=== PATIENT | female | born 1960 | race Caucasian/White ===

== ENCOUNTER → 2016-10-08 | Outpatient (CLI) | payer OTHER ==
--- NOTE | 2016-10-09 11:09 | MM ---
Reason for exam: screening (asymptomatic). Last mammogram was performed 1 year ago. Physical Findings: A clinical breast exam by your physician is recommended on an annual basis and results should be correlated with mammographic findings. MG Screening Mammo w CAD Bilateral CC and MLO view(s) were taken. Prior study comparison: October 09, 2015, left breast MG 3d work up w/cad LT. October 04, 2015, bilateral MG screening mammo w CAD. There are scattered fibroglandular densities. No significant changes when compared with prior studies. ASSESSMENT: Negative, BI-RAD 1 RECOMMENDATION: Routine screening mammogram of both breasts in 1 year.
== END | disposition home or self-care (01) ==
LOC: RADMAMWWP 06:56
PROVIDERS: ATTEND Obstetrics & Gynecology
DX: Z12.31 Encounter for screening mammogram for malignant neoplasm of breast (principal)

== ENCOUNTER 2017-10-22 07:01 | Day surgery (SDC) | payer OTHER ==
[~2017-10-22 07:01] MED LIST: LACTATED RINGERS 1,000 ML IV SCH; LIDOCAINE 1% 20 ML VIAL (10MG/ML) FOR IV START INTRADERMA PRN
[2017-10-22] MEDS ORDERED: LACTATED RINGERS 1,000 ML IV ONE (07:22)
[2017-10-22 07:33] VITALS: TEMP 97.5
[2017-10-22] MEDS ORDERED: LIDOCAINE 1% INJ 10MG/ML (20 ML MDV) ONE (08:22)
[2017-10-22] MEDS ORDERED: PROPOFOL 10 MG/ML 20 ML VIAL IV ONE (08:22)
--- NOTE | 2017-10-22 08:45 | P.OP ---
Date of Procedure: 10/22/17 Preoperative Diagnosis: Screening colonoscopy Postoperative Diagnosis: Normal colonoscopy Procedure(s) Performed: Screening colonoscopy Anesthesia: MAC Surgeon: America Kathleen Condition: stable Disposition: PACU Indications for Procedure: 57 years old female presents for first screening colonoscopy. No family history of colon cancer. No change in bowel habits. Operative Findings: Normal colonoscopy Small internal hemorrhoids Description of Procedure: The patient was brought to the endoscopy suite and placed in lateral decubitus position. IV sedation was given as per anesthesia team. Patient was on continuous vitals and pulse oximetry monitoring throughout the procedure. A timeout was performed to verify correct patient and correct procedure. Perianal examination did not show any external hemorrhoids. Digital rectal examination was performed. No masses or gross blood. A well-lubricated Olympus colonoscope was passed per rectally and was gradually advanced beyond the sigmoid colon, splenic flexure, transverse colon, hepatic flexure and cecum. The ileocecal valve was visualized as well as the appendiceal orifice . The colonoscope was gradually withdrawn inspecting all the mucosal surfaces. Bowel prep was fair. No polyps, masses, AV malformations noted. No diverticulosis. The scope was gradually withdrawn and retroflexed in the rectum . Grade 1 internal hemorrhoids seen. Total withdrawal time was greater than 6 minutes . Patient tolerated the procedure well and was taken to post anesthesia care unit in stable condition. Recommend repeat colonoscopy in 10 years i.e Sep 2027 unless new symptoms arise
[2017-10-22 09:07] VITALS: RESP 16
[2017-10-22 09:08] VITALS: BP 164/90; PULSE 55
== END 2017-10-22 09:20 | disposition home or self-care (01) ==
LOC: ORWHC2ENDO 07:01
PROVIDERS: ATTEND Surgery
DX: Z12.11 Encounter for screening for malignant neoplasm of colon (principal); K64.0 First degree hemorrhoids; I10 Essential (primary) hypertension; E07.9 Disorder of thyroid, unspecified; F32.9 Major depressive disorder, single episode, unspecified; K21.9 Gastro-esophageal reflux disease without esophagitis; Z79.890 Hormone replacement therapy; Z79.899 Other long term (current) drug therapy; Z88.6 Allergy status to analgesic agent; Z98.51 Tubal ligation status
CPT/HCPCS: J2001; J2704; G0121; 45378

== ENCOUNTER → 2017-11-03 | Outpatient (CLI) | payer OTHER ==
--- NOTE | 2017-11-04 07:35 | MM ---
Reason for exam: screening (asymptomatic). Last mammogram was performed 1 year and 1 month ago. History: Patient is postmenopausal. Physical Findings: A clinical breast exam by your physician is recommended on an annual basis and results should be correlated with mammographic findings. MG Screening Mammo w CAD Bilateral CC and MLO view(s) were taken. Prior study comparison: October 08, 2016, bilateral MG screening mammo w CAD. October 09, 2015, left breast MG 3d work up w/cad LT. The breast tissue is almost entirely fat. There is no discrete abnormality. No significant changes when compared with prior studies. ASSESSMENT: Negative, BI-RAD 1 RECOMMENDATION: Routine screening mammogram of both breasts in 1 year.
== END | disposition home or self-care (01) ==
LOC: RADMAMWWP 07:04
PROVIDERS: ATTEND Obstetrics & Gynecology
DX: Z12.31 Encounter for screening mammogram for malignant neoplasm of breast (principal)
CPT/HCPCS: 77067

== ENCOUNTER → 2018-11-18 | Outpatient (CLI) | payer OTHER ==
--- NOTE | 2018-11-19 10:04 | MM ---
Reason for exam: screening (asymptomatic). Last mammogram was performed 1 year ago. History: Patient is postmenopausal. Physical Findings: A clinical breast exam by your physician is recommended on an annual basis and results should be correlated with mammographic findings. MG 3D Screening Mammo W/Cad Bilateral CC and MLO view(s) were taken. Prior study comparison: November 03, 2017, bilateral MG screening mammo w CAD. October 08, 2016, bilateral MG screening mammo w CAD. The breast tissue is almost entirely fat. No significant changes when compared with prior studies. ASSESSMENT: Benign, BI-RAD 2 RECOMMENDATION: Routine screening mammogram of both breasts in 1 year.
== END | disposition home or self-care (01) ==
LOC: RADMAMWWP 06:52
PROVIDERS: ATTEND Obstetrics & Gynecology
DX: Z12.31 Encounter for screening mammogram for malignant neoplasm of breast (principal)
CPT/HCPCS: 77063; 77067

== ENCOUNTER 2021-02-09 07:10 | Inpatient (IN) | payer OTHER ==
--- NOTE | 2021-02-09 07:38 | ED ---
ENT HPI - General Chief complaint: ENT Stated complaint: Swollen throat Time Seen by Provider: 02/09/21 07:24 Source: patient, RN notes reviewed Mode of arrival: ambulatory Limitations: no limitations - History of Present Illness Initial comments: 60-year-old female presents emergency Department chief complaint of pain, swelling underneath her chin. Patient states that she's had an infectionin the past in which a heavy drain. Patient states that she did have prior surgery in which a small bone was removed and metal was placed secondary to sleep apnea. Patient denies any fever recently but current temp is 99.9. Patient denies any difficulty swallowing but states it is sore to swallow. Patient had prior tonsillectomy, sinus surgery also. Patient denies headache dizziness no posterior neck pain no chest pain or shortness breath - Related Data Home Medications Medication Instructions Recorded Confirmed DULoxetine HCL [Cymbalta] 10 mg PO BID 10/17/17 10/22/17 Levothyroxine Sodium [Synthroid] 150 mcg PO QAM 10/17/17 10/22/17 Omeprazole 40 mg PO DAILY 10/17/17 10/22/17 atenoloL [Atenolol] 100 mg PO BID 10/17/17 10/22/17 lisinopriL [Zestril] 10 mg PO DAILY 10/17/17 10/22/17 Allergies Allergy/AdvReac Type Severity Reaction Status Date / Time meloxicam [From Mobic] Allergy Swelling Verified 02/09/21 07:15 Review of Systems ROS Statement: Those systems with pertinent positive or pertinent negative responses have been documented in the HPI. ROS Other: All systems not noted in ROS Statement are negative. Past Medical History Past Medical History: GERD/Reflux, Hypertension, Thyroid Disorder History of Any Multi-Drug Resistant Organisms: None Reported Past Surgical History: Tubal Ligation, Uterine Ablation Additional Past Surgical History / Comment(s): sx for sleep apnea, D&C, chin surgery Past Anesthesia/Blood Transfusion Reactions: No Reported Reaction Past Psychological History: Anxiety Smoking Status: Never smoker Past Alcohol Use History: Rare Past Drug Use History: None Reported - Past Family History Father Family Medical History: Cancer Additional Family Medical History / Comment(s): liver, lung General Exam Limitations: no limitations General appearance: alert, in no apparent distress Head exam: Present: atraumatic, normocephalic, normal inspection Eye exam: Present: normal appearance, PERRL, EOMI. Absent: scleral icterus, conjunctival injection, periorbital swelling ENT exam: Present: normal oropharynx, mucous membranes moist, TM's normal bilaterally, normal external ear exam. Absent: other (Swelling in the submental region, mild erythema, firm with palpation) Neck exam: Present: normal inspection, full ROM. Absent: tenderness, lymphadenopathy Respiratory exam: Present: normal lung sounds bilaterally. Absent: respiratory distress, wheezes, rales, rhonchi, stridor Cardiovascular Exam: Present: regular rate, normal rhythm, normal heart sounds. Absent: systolic murmur, diastolic murmur, rubs, gallop, clicks Neurological exam: Present: alert Skin exam: Present: warm, dry, intact, normal color. Absent: rash Course Vital Signs 02/09/21 07:16 Temperature 99.9 F H Pulse Rate 73 Respiratory 18 Rate Blood Pressure 160/84 O2 Sat by Pulse 96 Oximetry Medical Decision Making - Medical Decision Making 60-year-old presents for throat swelling, jaw pain. Patient is a 2 cm abscess case discussed with on-call ENT Dr. Anderson who recommended patient be admitted with consult to him with consult ID starting antibiotics. Patient will be kept nothing by mouth at this time until further evaluation. - Lab Data Result diagrams: 02/09/21 07:40 02/09/21 07:40 Lab Results 02/09/21 02/09/21 02/09/21 Range/Units 07:40 07:40 07:40 WBC 9.0 (3.8-10.6) k/uL RBC 4.40 (3.80-5.40) m/uL Hgb 13.9 (11.4-16.0) gm/dL Hct 40.0 (34.0-46.0) % MCV 90.8 (80.0-100.0) fL MCH 31.6 (25.0-35.0) pg MCHC 34.8 (31.0-37.0) g/dL RDW 12.8 (11.5-15.5) % Plt Count 238 (150-450) k/uL MPV 7.1 Neutrophils % 81 % Lymphocytes % 10 % Monocytes % 5 % Eosinophils % 2 % Basophils % 0 % Neutrophils # 7.3 (1.3-7.7) k/uL Lymphocytes # 0.9 L (1.0-4.8) k/uL Monocytes # 0.5 (0-1.0) k/uL Eosinophils # 0.2 (0-0.7) k/uL Basophils # 0.0 (0-0.2) k/uL Sodium 140 (137-145) mmol/L Potassium 4.2 (3.5-5.1) mmol/L Chloride 106 (98-107) mmol/L Carbon Dioxide 25 (22-30) mmol/L Anion Gap 9 mmol/L BUN 20 H (7-17) mg/dL Creatinine 0.71 (0.52-1.04) mg/dL Est GFR (CKD-EPI)AfAm >90 (>60 ml/min/1.73 sqM) Est GFR (CKD-EPI)NonAf >90 (>60 ml/min/1.73 sqM) Glucose 115 H (74-99) mg/dL Plasma Lactic Acid Phill 0.9 (0.7-2.0) mmol/L Calcium 9.4 (8.4-10.2) mg/dL Total Bilirubin 2.0 H (0.2-1.3) mg/dL AST 24 (14-36) U/L ALT 26 (4-34) U/L Alkaline Phosphatase 68 (38-126) U/L Total Protein 7.5 (6.3-8.2) g/dL Albumin 4.0 (3.5-5.0) g/dL Disposition Clinical Impression: Ludwigs angina Disposition: ADMITTED IP TO THIS HOSP Condition: Fair Referrals: Casey Roca MD [Primary Care Provider] - 1-2 days
[2021-02-09 07:56] LABS: Basophils % (A) 0 %; Eosinophils # (A) 0.2 k/uL (0-0.7); Eosinophils % (A) 2 %; HGB 13.9 gm/dL (11.4-16.0); Lymphocytes # (A) 0.9 k/uL (1.0-4.8); Lymphocytes % (A) 10 %; MCH 31.6 pg (25.0-35.0); MCHC 34.8 g/dL (31.0-37.0); MCV 90.8 fL (80.0-100.0); Mean Platelet Volume 7.1; Monocytes # (A) 0.5 k/uL (0-1.0); Monocytes % (A) 5 %; Neutrophils # (A) 7.3 k/uL (1.3-7.7); Neutrophils % (A) 81 %; Platelet Count 238 k/uL (150-450); RDW 12.8 % (11.5-15.5)
[2021-02-09 08:14] LABS: ALT 26 U/L (4-34); AST 24 U/L (14-36); African American GFR (CKD) >90 (>60 ml/min/1.73 sqM); Alkaline Phosphatase 68 U/L (38-126); Anion Gap 9 mmol/L; Blood Urea Nitrogen 20 mg/dL (7-17); Calcium 9.4 mg/dL (8.4-10.2); Carbon Dioxide 25 mmol/L (22-30); Chloride 106 mmol/L (98-107); Glucose 115 mg/dL (74-99); Non-African American GFR(CKD) >90 (>60 ml/min/1.73 sqM); Potassium 4.2 mmol/L (3.5-5.1); Sodium 140 mmol/L (137-145); Total Protein 7.5 g/dL (6.3-8.2)
--- NOTE | 2021-02-09 08:59 | CT ---
EXAMINATION TYPE: CT soft tissue neck w con DATE OF EXAM: 02/09/2021 8:47 AM COMPARISON: None HISTORY: Submental swelling & pin CT DLP: 280.4 mGycm Automated exposure control for dose reduction was used. CONTRAST: CT scan of the neck is performed following with IV Contrast, patient injected with 100 mL of Isovue 3 00. Axial images are obtained, coronal and sagittal reformatted images are reviewed. FINDINGS: There is a 2 cm somewhat ill-defined mass adjacent and immediately inferior to the midline mandible i n the anterior neck. The surrounding subcutaneous fat is infiltrated. The findings are consistent wit h an abscess or neoplastic mass. There is no bony destruction of the mandible. Clinical correlation i s recommended. Biopsy may be indicated. There are no enlarged lymph nodes within the neck. The parotid and submandibular glands are normal and symmetric. The tongue base, epiglottis, aryepiglottic folds, piriform sinuses and vallecula are normal and symme tric. Parapharyngeal structures are normal. The great vessels the neck are unremarkable. The larynx including the thyroid gland, thyroid cartilages arytenoid cartilages and cricoid cartilage s are intact without evidence of mass. The vocal cords are normal and symmetric. IMPRESSION: 2 cm submental midline soft tissue mass as described above. Clinical correlation and biopsy should be considered. Findings are consistent with abscess or neoplasm.
[2021-02-09] MEDS ORDERED: AMPICILLIN-SULBACTAM 3 GM in SODIUM CHLORIDE 0.9% 100 ML IVPB STA (09:27)
[2021-02-09] MEDS ORDERED: ONDANSETRON 4 MG/2 ML VIAL IVP PRN (09:28)
[2021-02-09] MEDS ORDERED: NALOXONE 0.4 MG/ML 1 ML VIAL IV PRN (09:28)
[2021-02-09] MEDS ORDERED: SODIUM CHLORIDE 0.9% 1,000 ML IV SCH (09:30)
[2021-02-09] MEDS ORDERED: ACETAMINOPHEN TAB 325 MG TAB PO PRN (11:21)
--- NOTE | 2021-02-09 11:27 | P.HPIM ---
History of Present Illness H&P Date: 02/09/21 Chief Complaint: Chin swelling This is a 60-year-old female with past medical history noted below that presented to the emergency room with Chin swelling and pain. Patient said that her symptoms started yesterday and is being getting progressively worse. She noted a lump in her Chin that is getting more red and painful. Patient said that she had similar problems a few years ago where she was evaluated in the ENT specialist elsewhere and underwent drainage with partial bone removal with screw placement in her mandible according to her report. Patient was evaluated in the ER and a computed tomography scan showed evidence of a 2 cm submandibular midline soft tissue mass . Case discussed over the phone with ENT. Recommendation to start patient on an antibiotic and admitted for further evaluation. Patient otherwise denies any specific complaints or concerns. No evidence of sepsis. Review of Systems Review of system: 14 points review of systems were obtained and were negative except to what were mentioned in the HPI. Past Medical History Past Medical History: GERD/Reflux, Hypertension, Respiratory Disorder, Sleep Apnea/CPAP/BIPAP, Thyroid Disorder Additional Past Medical History / Comment(s): Pt recently diagnosed with covid 19 on 01/30/21 at a [facility] [place] by the health department. Other hx: Lung sarcoidosis, previous submandibular infection approximately 3-4 years ago, past surgery for RUDY involved metal screw/bone removed, hypothyroid. History of Any Multi-Drug Resistant Organisms: None Reported Past Surgical History: Tonsillectomy, Tubal Ligation, Uterine Ablation Additional Past Surgical History / Comment(s): Surgery for RUDY which involved removing small bone and bringing tongue forward and there is a screw in place, sinus surgery, D&C/uterine ablation, colonoscopy. Past Anesthesia/Blood Transfusion Reactions: No Reported Reaction Smoking Status: Never smoker - Past Family History Father Family Medical History: Cancer Additional Family Medical History / Comment(s): Father from lung/liver cancer. Mother Family Medical History: Diabetes Mellitus Additional Family Medical History / Comment(s): Mother is living. Medications and Allergies Home Medications Medication Instructions Recorded Confirmed Type Atenolol [Tenormin] 50 mg PO BID 02/09/21 02/09/21 History Cholecalciferol (Vitamin D3) 125 mcg PO DAILY 02/09/21 02/09/21 History [Vitamin D3 (5000 Iu)] FLUoxetine HCL [PROzac] 20 mg PO DAILY 02/09/21 02/09/21 History Levothyroxine Sodium [Synthroid] 100 mcg PO DAILY 02/09/21 02/09/21 History Losartan Potassium 50 mg PO DAILY 02/09/21 02/09/21 History Omeprazole 20 mg PO DAILY 02/09/21 02/09/21 History Allergies Allergy/AdvReac Type Severity Reaction Status Date / Time meloxicam [From [facility]] Allergy Swelling Verified 02/09/21 09:48 Physical Exam Vitals: Vital Signs Temp Pulse Pulse Resp BP BP Pulse Ox 02/09/21 11:07 98.5 F 59 L 16 143/81 94 L 02/09/21 07:16 99.9 F H 73 18 160/84 96 Intake and Output 02/08/21 02/09/21 02/09/21 22:59 06:59 14:59 Other: Weight 79.197 kg General: The patient is awake and alert, in no distress Eye: there is normal conjunctiva bilaterally. Neck: The neck is supple, there is no JVD. . There is an area of swelling approximately 2 cm in the chin area right behind the submental midline of the mandible there is slightly erythematous and moderately tender to touch. Cardiovascular: Normal S1-S2, no S3-S4, no murmurs. Respiratory: Lungs clear to auscultation bilaterally Gastrointestinal: Abdomen is soft, nontender Musculoskeletal: There is no pedal edema. Neurological:. Speech is normal. Skin: Skin is warm and dry Results CBC & Chem 7: 02/09/21 07:40 02/09/21 07:40 Labs: Abnormal Lab Results - Last 24 Hours (Table) 02/09/21 02/09/21 02/09/21 Range/Units 07:40 07:40 10:36 Lymphocytes # 0.9 L (1.0-4.8) k/uL BUN 20 H (7-17) mg/dL Glucose 115 H (74-99) mg/dL Total Bilirubin 2.0 H (0.2-1.3) mg/dL C-Reactive Protein 3.0 H (<1.0) mg/dL Thrombosis Risk Factor Assmnt - Choose All That Apply Any of the Below Risk Factors Present?: Yes Each Factor Represents 1 point: Age 41-60 years, Obesity (BMI >25), Serious lung disease incl. pneumonia (< 1month) Other Risk Factors: No Other congenital or acquired thrombophilia - If yes, enter type in comment: No Thrombosis Risk Factor Assessment Total Risk Factor Score: 3 Thrombosis Risk Factor Assessment Level: Moderate Risk Assessment and Plan Assessment: This is a 60-year-old female with past medical history noted below that presented to the emergency room with swelling and pain in her Chin. Patient was admitted to the hospital for further management of her medical problems noted below. 1. Submandibular abscess: with computed tomography scan showing evidence of a 2 cm submandibular midline soft tissue mass. ENT consulted for further evaluation. Patient started on antibiotic with IV Unasyn. CRP only slightly elevated. Neoplasm also included in the differential 2. Chronic medical problems: Essential hypertension, hypothyroidism, depression: Continue home medication 3. DVT prophylaxis with subcu Lovenox Today, I reviewed her medication list and lab work results. Continue IV fluid hydration with normal saline at 75 mg per hour. Appreciate guidance consultant's recommendations.
[2021-02-09 13:39] VITALS: BP 145/88; PULSE 71; RESP 18; TEMP 98.8
--- NOTE | 2021-02-09 15:54 | P.GSCN ---
History of Present Illness Consult date: 02/09/21 Reason for Consult: Chin and submental swelling Requesting physician: Kimberlyn Walters History of present illness: This patient is a 60-year-old white female who 1-2 days ago started to have swelling under her chin. This has spread to the anterior part of the chin and submental region. About 10 years ago she had they genioglossus advancement procedure and has a retained metal screw in the mentum of the mandible. She's had previous infection in the past in this area. She wonders if there is a correlation and/or cauterization to the previous anterior chin surgery that was performed for sleep apnea. He did review the results of the CAT scan demonstrating a metal screw the inner portion of the anterior mandible she tells me that this has progressed regarding her swelling. It is quite tender and she presented to the emergency room where she was admitted and placed on IV antibiotics. Review of Systems - Constitutional Reports as per HPI - EENT Ears, nose, mouth and throat: Reports as per HPI - Cardiovascular Reports as per HPI - Respiratory Reports as per HPI - Gastrointestinal Reports as per HPI - Genitourinary Genitourinary: Reports as per HPI - Musculoskeletal Reports as per HPI - Integumentary Reports as per HPI - Neurological Reports as per HPI - Psychiatric Reports as per HPI - Endocrine Reports as per HPI - Hematologic/Lymphatic Reports as per HPI - Allergic/Immunologic Reports as per HPI Past Medical History Past Medical History: GERD/Reflux, Hypertension, Respiratory Disorder, Sleep Apnea/CPAP/BIPAP, Thyroid Disorder Additional Past Medical History / Comment(s): Pt recently diagnosed with covid 19 on 01/30/21 at a [facility] by the health department. Other hx: Lung sarcoidosis, previous submandibular infection approximately 3-4 years ago, past surgery for RUDY involved metal screw/bone removed, hypothyroid. History of Any Multi-Drug Resistant Organisms: None Reported Past Surgical History: Tonsillectomy, Tubal Ligation, Uterine Ablation Additional Past Surgical History / Comment(s): Surgery for RUDY which involved removing small bone and bringing tongue forward and there is a screw in place, sinus surgery, D&C/uterine ablation, colonoscopy. Past Anesthesia/Blood Transfusion Reactions: No Reported Reaction Smoking Status: Never smoker - Past Family History Father Family Medical History: Cancer Additional Family Medical History / Comment(s): Father from lung/liver cancer. Mother Family Medical History: Diabetes Mellitus Additional Family Medical History / Comment(s): Mother is living. Medications and Allergies Home Medications Medication Instructions Recorded Confirmed Type Atenolol [Tenormin] 50 mg PO BID 02/09/21 02/09/21 History Cholecalciferol (Vitamin D3) 125 mcg PO DAILY 02/09/21 02/09/21 History [Vitamin D3 (5000 Iu)] FLUoxetine HCL [PROzac] 20 mg PO DAILY 02/09/21 02/09/21 History Levothyroxine Sodium [Synthroid] 100 mcg PO DAILY 02/09/21 02/09/21 History Losartan Potassium 50 mg PO DAILY 02/09/21 02/09/21 History Omeprazole 20 mg PO DAILY 02/09/21 02/09/21 History Allergies Allergy/AdvReac Type Severity Reaction Status Date / Time meloxicam [From [facility]] Allergy Swelling Verified 02/09/21 09:48 Surgical - Exam Osteopathic Statement: *. No significant issues noted on an osteopathic structural exam other than those noted in the History and Physical/Consult. Vital Signs Temp Pulse Resp BP Pulse Ox 99.9 F H 73 18 160/84 96 02/09/21 07:16 02/09/21 07:16 02/09/21 07:16 02/09/21 07:16 02/09/21 07:16 - General well developed, well nourished, no distress - Eyes PERRL, normal ocular movement - ENT normal pinna, normal nares, normal mucosa, no hearing loss - Neck Patient has swelling to the anterior chin and submental region. It centered around the incision from her previous surgery of a genioglossus advancement pro cedure about 11 years old. no masses, no bruits, trachea midline, no venous distension - Respiratory normal expansion, normal respiratory effort, clear to percussion, clear to auscultation - Abdomen Abdomen: soft - Integumentary no rash - Neurologic normal coordination, normal sensation - Psychiatric oriented to time, oriented to person, oriented to place, speech is normal, memory intact Results - Labs 02/09/21 07:40 02/09/21 07:40 Abnormal Lab Results - Last 24 Hours (Table) 02/09/21 02/09/21 02/09/21 Range/Units 07:40 07:40 07:40 Lymphocytes # 0.9 L (1.0-4.8) k/uL ESR 26 H (0-20) mm/hr BUN 20 H (7-17) mg/dL Glucose 115 H (74-99) mg/dL Total Bilirubin 2.0 H (0.2-1.3) mg/dL C-Reactive Protein (<1.0) mg/dL SARS-CoV-2 (PCR) (Not Detectd) 02/09/21 02/09/21 Range/Units 10:34 10:36 Lymphocytes # (1.0-4.8) k/uL ESR (0-20) mm/hr BUN (7-17) mg/dL Glucose (74-99) mg/dL Total Bilirubin (0.2-1.3) mg/dL C-Reactive Protein 3.0 H (<1.0) mg/dL SARS-CoV-2 (PCR) Detected A (Not Detectd) Diabetes panel 02/09/21 Range/Units 07:40 Sodium 140 (137-145) mmol/L Potassium 4.2 (3.5-5.1) mmol/L Chloride 106 (98-107) mmol/L Carbon Dioxide 25 (22-30) mmol/L BUN 20 H (7-17) mg/dL Creatinine 0.71 (0.52-1.04) mg/dL Glucose 115 H (74-99) mg/dL Calcium 9.4 (8.4-10.2) mg/dL AST 24 (14-36) U/L ALT 26 (4-34) U/L Alkaline Phosphatase 68 (38-126) U/L Total Protein 7.5 (6.3-8.2) g/dL Albumin 4.0 (3.5-5.0) g/dL Calcium panel 02/09/21 Range/Units 07:40 Calcium 9.4 (8.4-10.2) mg/dL Albumin 4.0 (3.5-5.0) g/dL Pituitary panel 02/09/21 Range/Units 07:40 Sodium 140 (137-145) mmol/L Potassium 4.2 (3.5-5.1) mmol/L Chloride 106 (98-107) mmol/L Carbon Dioxide 25 (22-30) mmol/L BUN 20 H (7-17) mg/dL Creatinine 0.71 (0.52-1.04) mg/dL Glucose 115 H (74-99) mg/dL Calcium 9.4 (8.4-10.2) mg/dL Adrenal panel 02/09/21 Range/Units 07:40 Sodium 140 (137-145) mmol/L Potassium 4.2 (3.5-5.1) mmol/L Chloride 106 (98-107) mmol/L Carbon Dioxide 25 (22-30) mmol/L BUN 20 H (7-17) mg/dL Creatinine 0.71 (0.52-1.04) mg/dL Glucose 115 H (74-99) mg/dL Calcium 9.4 (8.4-10.2) mg/dL Total Bilirubin 2.0 H (0.2-1.3) mg/dL AST 24 (14-36) U/L ALT 26 (4-34) U/L Alkaline Phosphatase 68 (38-126) U/L Total Protein 7.5 (6.3-8.2) g/dL Albumin 4.0 (3.5-5.0) g/dL Assessment and Plan (1) Cellulitis of submental space Current Visit: Yes Status: Acute Code(s): L03.211 - CELLULITIS OF FACE SNOMED Code(s): 911946045 (2) Cellulitis of chin Current Visit: Yes Status: Acute Code(s): L03.211 - CELLULITIS OF FACE SNOMED Code(s): 88063060 Plan: This patient has clinical cellulitis of the chin and anterior submental region. Interestingly is located around her previous incision line of her genioglossus advancement procedure which has an persistent screw in place and the inner portion of the anterior mandible. I do not see any signs of osteomyelitis or any bony infection. This all appears to be relatively superficial. I'm recommending continued antibiotic therapy and this can be done inpatient an earlier outpatient. She is to follow up with me in the office on outpatient basis. If this recurs or we have a difficult time getting this under control, removal of this and additional screw would be a strong consideration. Time with Patient: Greater than 30
[2021-02-09] MEDS ORDERED: AMPICILLIN-SULBACTAM 3 GM in SODIUM CHLORIDE 0.9% 100 ML IVPB SCH (18:00)
[2021-02-09] MEDS ORDERED: atenoloL 50 MG TAB PO SCH (21:00)
--- NOTE | 2021-02-09 22:40 | CONS ---
CONSULTATION DATE OF SERVICE: 02/09/2021 REASON FOR CONSULTATION: Chin abscess. HISTORY OF PRESENT ILLNESS: The patient is a 60-year-old female with a past medical history significant for a chin abscess in this patient who did have I and D done that was analyzed by ENT. Patient did not recall what the cultures were or any specific antibiotic she was given. The patient recently completed her Pfizer COVID vaccination mention on 01/25/2021. The patient mentioned she started feeling not well after her second dose, and initially thought some of her symptoms were related to post vaccination. However, on 01/30/2021 the patient tested positive for COVID and has been treated mostly supportively. The patient mentioned she went back to work yesterday after getting out of her quarantine when she was noticed to have the swelling to the submental area. It started yesterday. No history of any trauma. The area started getting swollen and becoming painful. The patient describes the pain to be more of a dull aching, throbbing, about 7 out of 10 and no radiation. She denies any difficulty swallowing or breathing and denies having any fever or chills. With these symptoms, the patient presented to hospital. On arrival in the ER the patient did have a low-grade fever of 99.9 degrees Fahrenheit. The patient was not tachycardic or hypoxic. The patient had a normal white count with lymphopenia. BUN of 20, creatinine 0.71. Liver enzymes were normal. CRP was 3.04. Cheek PCR came back positive. The patient did have a CT of the soft tissue of the neck that showed a 2 cm submental midline soft tissue mass with concern for possible abscess or neoplasm. The patient has been admitted to the hospital. She was started on Unasyn. Infectious Disease was consulted for further management. The patient currently denies having any problem with her teeth or any painful swallowing, and no recent dental workup. REVIEW OF SYSTEMS: Positive points have been mentioned in the HPI. Rest of the systems are negative. PAST MEDICAL HISTORY: Hypothyroidism, hypertension, gastroesophageal reflux disease, history of submental abscess and recent COVID-19 infection. PAST SURGICAL HISTORY: Tubal ligation, uterine ablation, D and C and chin surgery. SOCIAL HISTORY: Denies smoking. Rarely drinks. No drug use. FAMILY HISTORY: Father with history of lung and liver cancer. ALLERGIES: MELOXICAM. MEDICATIONS: The patient is currently on Tylenol, Unasyn, Tenormin, vitamin D3, Lovenox, Prozac, Synthroid, Cozaar, Narcan, Zofran, Protonix. PHYSICAL EXAMINATION: Blood pressure 145/88 with a pulse of 71, temperature 98.8. She is 92% on room air. General description is a middle-aged female up in the chair in no distress. HEENT: Examination shows no pallor or scleral icterus. Oral mucous membrane is dry. Neck area did have small area of swelling. No significant redness. It is painful to touch. NECK: Trachea is central. No thyromegaly. LUNGS: Unlabored breathing. Clear to auscultation anteriorly. HEART: S1, S2. Regular rate and rhythm. ABDOMEN: Soft. No tenderness. No guarding or rigidity. EXTREMITIES: No edema of the feet. SKIN EXAMINATION: No rash or mass palpable. Neurologically the patient is awake, alert, oriented x3. Mood and affect normal. LABS: Hemoglobin 13.9, white count 9.0, BUN of 20, creatinine 0.71. ALT, AST normal. CRP 3.0. CT report as mentioned above. DIAGNOSTIC IMPRESSION AND PLAN: 1. Patient presented to hospital with a painful lump to the neck area in this patient with history of cyst removal from the neck a few years ago with concern for possible abscess, neoplasm less likely. Will need to cover for oral santy to be the likely pathogen. 2. Patient with a positive COVID test in this patient initially diagnosed with COVID on 01/30 with symptoms starting on 01/25 more than 2 weeks of her symptoms started. Her COVID symptoms currently with no significant respiratory symptoms. No hypoxemia. Treatment will be mostly supportive. PLAN: 1. Will keep the patient on Unasyn 3 grams IV piggyback q.6 hours. 2. Will add vitamin C, zinc, Lovenox. 3. Await ENT evaluation for possible drainage of this cyst and culture. 4. We will follow clinical condition and culture to further adjust medication if needed. Thank you for this consultation. Will follow this patient along with you. MMODL / IJN: [id number] /
[2021-02-10] MEDS ORDERED: LEVOTHYROXINE 100 MCG TAB PO SCH (06:30)
[2021-02-10] MEDS ORDERED: PANTOPRAZOLE 40 MG TABLET PO SCH (07:30)
[2021-02-10] MEDS ORDERED: ENOXAPARIN 40 MG/0.4 ML SYRINGE SQ SCH (09:00)
[2021-02-10] MEDS ORDERED: CHOLECALCIFEROL 25 MCG (1000 IU) TABLET PO SCH (09:00)
[2021-02-10] MEDS ORDERED: FLUoxetine HCL 20 MG CAP PO SCH (09:00)
[2021-02-10] MEDS ORDERED: LOSARTAN 50 MG TAB PO SCH (09:00)
--- NOTE | 2021-02-10 10:08 | P.DS ---
Providers Date of admission: 02/09/21 09:28 Expected date of discharge: 02/10/21 Attending physician: Kimberlyn Walters Consults: 02/09/21 09:29 Consult Physician Urgent Consulting Provider: Robbie Anderson Consult Reason/Comments: Submental abscess Do you want consulting provider notified?: Already Contacted Consult Physician Urgent Consulting Provider: Margaret Melara Consult Reason/Comments: Submental abscess, rule out Ayden angina Do you want consulting provider notified?: Yes Primary care physician: Casey Roca MD Hospital Course: This is a 60-year-old female with past medical history noted below that presented to the emergency room with swelling and pain in her Chin. Patient was admitted to the hospital for further management of her medical problems noted below. 1. Submandibular abscess: with computed tomography scan showing evidence of a 2 cm submandibular midline soft tissue mass. ENT consulted for further evaluation. Patient was cleared by ENT for discharge home on oral antibiotic.. She will follow-up in the office in one week. 2. Chronic medical problems: Essential hypertension, hypothyroidism, depression: Continue home medication Patient Condition at Discharge: Fair Plan - Discharge Summary Discharge Rx Participant: No New Discharge Prescriptions: New Sulfamethox-Tmp 800-160Mg [Bactrim DS 800-160 mg] 1 tab PO Q12HR 7 Days #14 tab Continue Cholecalciferol (Vitamin D3) [Vitamin D3 (5000 Iu)] 125 mcg PO DAILY Omeprazole 20 mg PO DAILY Losartan Potassium 50 mg PO DAILY Levothyroxine Sodium [Synthroid] 100 mcg PO DAILY FLUoxetine HCL [PROzac] 20 mg PO DAILY Atenolol [Tenormin] 50 mg PO BID Discharge Medication List Atenolol [Tenormin] 50 mg PO BID 02/09/21 [History] Cholecalciferol (Vitamin D3) [Vitamin D3 (5000 Iu)] 125 mcg PO DAILY 02/09/21 [History] FLUoxetine HCL [PROzac] 20 mg PO DAILY 02/09/21 [History] Levothyroxine Sodium [Synthroid] 100 mcg PO DAILY 02/09/21 [History] Losartan Potassium 50 mg PO DAILY 02/09/21 [History] Omeprazole 20 mg PO DAILY 02/09/21 [History] Sulfamethox-Tmp 800-160Mg [Bactrim DS 800-160 mg] 1 tab PO Q12HR 7 Days #14 tab 02/09/21 [Rx] Follow up Appointment(s)/Referral(s): Robbie Anderson DO [Doctor of Osteopathic Medicine] - 02/14/21 1:15 pm (Please attend appointment 15 minutes early approximately 1:00pm to complete paperwork) Casey Roca MD [Primary Care Provider] - 1-2 days (Office closed at the time of discharge - please call the office to arrange follow up appointment) Patient Instructions/Handouts: Cellulitis (GEN) Discharge Disposition: HOME SELF-CARE
== END 2021-02-09 16:52 | disposition home or self-care (01) | DRG 157 ==
LOC: EC 07:10 → 4SSUR 09:28
PROVIDERS: ADMIT Internal Medicine; ATTEND Internal Medicine
DX: K12.2 Cellulitis and abscess of mouth (principal); U07.1 COVID-19; L03.211 Cellulitis of face; D72.810 Lymphocytopenia; E03.9 Hypothyroidism, unspecified; F32.9 Major depressive disorder, single episode, unspecified; I10 Essential (primary) hypertension; Z79.890 Hormone replacement therapy; Z79.899 Other long term (current) drug therapy; Z80.0 Family history of malignant neoplasm of digestive organs; Z83.3 Family history of diabetes mellitus
CPT/HCPCS: 36415; 70491; 80053; 83605; 85025; 85652; 86140; 87040; 87636; 99285

== ENCOUNTER → 2021-08-30 | Outpatient (CLI) | payer OTHER ==
--- NOTE | 2021-08-31 11:51 | MM ---
Reason for exam: screening (asymptomatic). Last mammogram was performed 1 year and 1 month ago. History: Patient is postmenopausal. Physical Findings: A clinical breast exam by your physician is recommended on an annual basis and results should be correlated with mammographic findings. MG Screening Mammo w CAD Bilateral CC and MLO view(s) were taken. Prior study comparison: July 21, 2020, bilateral MG foundation screening mammo. November 18, 2018, bilateral MG 3d screening mammo w/cad. There are scattered fibroglandular densities. Asymmetric breast tissue upper right aspect, stable. There is no discrete abnormality. ASSESSMENT: Negative, BI-RAD 1 RECOMMENDATION: Routine screening mammogram of both breasts in 1 year.
== END | disposition home or self-care (01) ==
LOC: RADMAMWWP 08:14
PROVIDERS: ATTEND Obstetrics & Gynecology
DX: Z12.31 Encounter for screening mammogram for malignant neoplasm of breast (principal); Z78.0 Asymptomatic menopausal state
CPT/HCPCS: 77067

== ENCOUNTER 2021-10-21 23:32 | Emergency (ER) | payer OTHER ==
[2021-10-21 23:37] VITALS: BP 164/83; PULSE 58; RESP 20; TEMP 97.8
[2021-10-21] MEDS ORDERED: LIDOCAINE 1% INJ 10MG/ML (20 ML MDV) SQ ONE (23:46)
[2021-10-21] MEDS ORDERED: ACETAMINOPHEN TAB 500 MG TAB PO STA (23:46)
[2021-10-21] MEDS ORDERED: DIPH,PERTUS(ACELL)TETVAC-LF 0.5 ML VIAL IM ONE (23:46)
[2021-10-21] MEDS ORDERED: IBUPROFEN 600 MG TAB PO STA (23:46)
[2021-10-22] MEDS ORDERED: CEPHALEXIN 500MG STARTER PACK 4 CAP BTL PO STA (00:04)
--- NOTE | 2021-10-22 00:06 | XR ---
EXAMINATION TYPE: XR toes LT DATE OF EXAM: 10/21/2021 COMPARISON: NONE HISTORY: Second toe injury TECHNIQUE: 3 views FINDINGS: I see no fracture nor dislocation. The second toe is intact. IMPRESSION: Negative left toes exam.
[2021-10-22] MEDS ORDERED: BACITRACIN OINT 1 EACH PACKET TOPICAL ONE (00:44)
--- NOTE | 2021-10-22 01:14 | ED ---
Wound/Laceration HPI - General Chief Complaint: Wound/Laceration Stated Complaint: LT toe lac Time Seen by Provider: 10/21/21 23:42 Source: patient Mode of arrival: ambulatory Limitations: no limitations - History of Present Illness Initial Comments: 61-year-old female patient presented to the emergency department today for evaluation of laceration to the left second toe. Patient states she was walking through her dark living room when she accidentally kicked her son's metal bed frame. States she did fall but denies hitting her head, losing consciousness, or sustaining any other injuries. States kicking the bed did cause a laceration, she did have the fire department come out and evaluate who recommended she come in for stitches. She did end up driving herself here. States she is having pain to the area. Difficulty walking. Denies any ankle pain. She does not take any blood thinning medications. She is unsure when her last tetanus vacc ine was given. Denies any history of diabetes or immunosuppressive conditions. - Related Data Home Medications Medication Instructions Recorded Confirmed Atenolol [Tenormin] 50 mg PO BID 02/09/21 02/09/21 Cholecalciferol (Vitamin D3) 125 mcg PO DAILY 02/09/21 02/09/21 [Vitamin D3 (5000 Iu)] FLUoxetine HCL [PROzac] 20 mg PO DAILY 02/09/21 02/09/21 Levothyroxine Sodium [Synthroid] 100 mcg PO DAILY 02/09/21 02/09/21 Losartan Potassium 50 mg PO DAILY 02/09/21 02/09/21 Omeprazole 20 mg PO DAILY 02/09/21 02/09/21 Previous Rx's Medication Instructions Recorded Sulfamethox-Tmp 800-160Mg [Bactrim 1 tab PO Q12HR 7 Days #14 tab 02/09/21 DS 800-160 mg] Cephalexin [Keflex] 500 mg PO BID #14 cap 10/22/21 Ibuprofen [Motrin] 600 mg PO Q8HR PRN #30 tab 10/22/21 Allergies Allergy/AdvReac Type Severity Reaction Status Date / Time meloxicam [From Mobic] Allergy Swelling Verified 10/21/21 23:35 Review of Systems ROS Statement: Those systems with pertinent positive or pertinent negative responses have been documented in the HPI. ROS Other: All systems not noted in ROS Statement are negative. Past Medical History Past Medical History: GERD/Reflux, Hypertension, Respiratory Disorder, Sleep Apnea/CPAP/BIPAP, Thyroid Disorder Additional Past Medical History / Comment(s): Pt recently diagnosed with covid 19 on 01/30/21 at a [facility] by the health department. Other hx: Lung sarcoidosis, previous submandibular infection approximately 3-4 years ago, past surgery for RUDY involved metal screw/bone removed, hypothyroid. History of Any Multi-Drug Resistant Organisms: None Reported Past Surgical History: Tonsillectomy, Tubal Ligation, Uterine Ablation Additional Past Surgical History / Comment(s): Surgery for RUDY which involved removing small bone and bringing tongue forward and there is a screw in place, sinus surgery, D&C/uterine ablation, colonoscopy. Past Anesthesia/Blood Transfusion Reactions: No Reported Reaction Past Psychological History: Anxiety Smoking Status: Never smoker Past Alcohol Use History: None Reported Past Drug Use History: None Reported - Past Family History Father Family Medical History: Cancer Additional Family Medical History / Comment(s): Father from lung/liver cancer. Mother Family Medical History: Diabetes Mellitus Additional Family Medical History / Comment(s): Mother is living. General Exam Limitations: no limitations General appearance: alert, in no apparent distress, other (This is a well- developed, well-nourished adult female patient in no acute distress.) Respiratory exam: Present: normal lung sounds bilaterally. Absent: respiratory distress, wheezes, rales, rhonchi, stridor Cardiovascular Exam: Present: regular rate, normal rhythm, normal heart sounds. Absent: systolic murmur, diastolic murmur, rubs, gallop, clicks Extremities exam: Present: full ROM, normal capillary refill, other (There is 4 cm laceration around the base of the left second toe extending from the plantar surface to the medial surface. Mild active bleeding. Soft tissue swelling, plantar forefoot. Nail is intact. Abrasion, dorsal aspect of the Lt foot. No midfoot tenderness. Pedal pulse 2+.). Absent: normal inspection, tenderness, pedal edema, joint swelling, calf tenderness Neurological exam: Present: alert, oriented X3, CN II-XII intact Psychiatric exam: Present: normal affect, normal mood Skin exam: Present: warm, dry, intact, normal color. Absent: rash Course Vital Signs 10/21/21 23:35 Temperature 97.8 F Pulse Rate 58 L Respiratory 20 Rate Blood Pressure 164/83 O2 Sat by Pulse 96 Oximetry Procedures - Laceration Laceration #1 Consent Obtained: verbal consent Indication: laceration Site: foot (left 2nd toe) Size (cm): 4 Depth: simple, single layer Anesthetic Used: lidocaine 1% Anesthesia Technique: local infiltration Amount (mls): 4 Pre-repair: irrigated extensively Type of Sutures: nylon Size of Sutures: 5-0 Number of Sutures: 7 Technique: simple, interrupted Patient Tolerated Procedure: well, no complications Medical Decision Making - Medical Decision Making 61-year-old female patient presented to the emergency department today for evaluation of laceration to the left second toe. Physical examination did reveal 4 cm laceration with mild active bleeding. Neurovascular status was i ntact. X-ray was obtained and showed no evidence for fracture. Wound was cleansed and repaired as documented. We did start Keflex for prophylaxis. She'll be discharged with instructions for wound care and follow-up with her PCP in 1-2 days. She is instructed to return in 2 weeks at the stitches removed. Return parameters were discussed in detail. She verbalizes understanding and is discharged in stable condition. My attending is Dr. Currie. - Radiology Data Radiology results: report reviewed, image reviewed 3 views of the left toes are obtained. Report was reviewed in its entirety. Impression by Dr. Almazan shows negative left toes exam. Disposition Clinical Impression: Laceration of second toe, left Disposition: HOME SELF-CARE Condition: Good Instructions (If sedation given, give patient instructions): Care For Your Stitches (ED), Laceration (ED) Additional Instructions: Cleanse wound twice daily with warm water and antibacterial soap. Apply ice to bottom of foot to aid with swelling. Keep covered. Return in 2 weeks to have the stitches removed. Complete antibiotic prescription in full. Follow-up with your primary care physician for recheck in 1-2 days. Return for any new, worse khadra, or concerning symptoms. Prescriptions: Cephalexin [Keflex] 500 mg PO BID #14 cap Ibuprofen [Motrin] 600 mg PO Q8HR PRN #30 tab PRN Reason: Pain Is patient prescribed a controlled substance at d/c from ED?: No Referrals: Casey Roca MD [Primary Care Provider] - 1-2 days Time of Disposition: 01:14
== END 2021-10-22 01:39 | disposition home or self-care (01) ==
LOC: EC 23:32
DX: S91.112A Laceration without foreign body of left great toe without damage to nail, initial encounter (principal); K21.9 Gastro-esophageal reflux disease without esophagitis; I10 Essential (primary) hypertension; E07.9 Disorder of thyroid, unspecified; F41.9 Anxiety disorder, unspecified; Z98.51 Tubal ligation status; W22.8XXA Striking against or struck by other objects, initial encounter
CPT/HCPCS: 99283; 90471; 12002; 73660; 90715; J2001

== ENCOUNTER → 2022-09-06 | Outpatient (CLI) | payer OTHER ==
--- NOTE | 2022-09-09 08:21 | MM ---
Reason for Exam: Screening (asymptomatic). Last screening mammogram was performed 12 month(s) ago. Patient History: Menarche at age 13. First Full-Term at age 24. Postmenopausal. Risk Values: Danielle 5 year model risk: 1.3%. NCI Lifetime model risk: 6.4%. Prior Study Comparison: 11/18/2018 Bilateral Screening Mammogram, [facility]. 07/21/2020 Bilateral Screening Mammogram, [facility]. 08/30/2021 Bilateral Screening Mammogram, [facility]. Tissue Density: There are scattered fibroglandular densities. Findings: Analyzed By CAD. There is no suspicious group of microcalcifications or new suspicious mass in either breast. Overall Assessment: Negative, BI-RAD 1 Management: Screening Mammogram of both breasts in 1 year. A clinical breast exam by your physician is recommended on an annual basis and results should be correlated with mammographic findings. Electronically signed and approved by: Yasmany Stafford M.D. Radiologis
--- NOTE | 2022-09-09 08:37 | BD ---
EXAMINATION TYPE: Axial Bone Density DATE OF EXAM: 09/06/2022 COMPARISON: 10/06/2015 CLINICAL HISTORY: 62 years old Female. ICD-10 CODE: N95.1 post menopausal symptoms Height: Weight: FRAX RISK QUESTIONS: Family History (Parent hip fracture): NO History of Fracture in Adulthood: NO Secondary Osteoporosis: NO Rheumatoid Arthritis: NO RISK FACTORS HISTORY OF: Family History of Osteoporosis: NO Active: YES Diet low in dairy products/other sources of calcium: NO Postmenopausal woman: YES Lost more than 2 inches in height since high school: YES Frequent falls: NO Poor Health: NO Hyperparathyroidism: NO Adrenal Insufficiency: NO MEDICATIONS: Thyroid Medications: YES Which medication: Levothyroxine How Lon+ YEARS Additional Medications: YES VIT D , HBP , ANXIETY , REFLUX EXAM MEASUREMENTS: Bone mineral densitometry was performed using the [employer] System. Bone mineral density as measured about the Lumbar spine is: ----- L1-L4(G/cm2): 1.307 T Score Values are as follows: ----- L1: 1.2 ----- L2: 0.4 ----- L3: 0.3 ----- L4: 2.0 ----- L1-L4: 1.1 Bone mineral density has: Increased 2.3% since study of: 10/06/2015 Bone mineral density about the R hip (g/cm2): 0.958 Bone mineral density about the L hip (g/cm2): 0.984 T Score values are as follows: -----R Neck: -1.6 -----L Neck: -1.2 -----R Total: -0.4 -----L Total: -0.2 Bone mineral density has: Decreased -4.1% since study of: 10/06/2015 FRAX%s: The graph provided illustrates a 8.0% chance for a major osteoporotic fx and a 0.7% chance fo r the hips probability for fx in 10 years time. IMPRESSION: Normal (Values between +1 and -1 indicate normal bone mass). Consider repeating this study in 5 year s or sooner if there is some new clinical indication. NOTE: T-SCORE=SD OF THE YOUNG ADULT MEAN.
== END | disposition home or self-care (01) ==
LOC: RADMAMWWP 15:18
PROVIDERS: ATTEND Obstetrics & Gynecology
DX: Z12.31 Encounter for screening mammogram for malignant neoplasm of breast (principal); N95.1 Menopausal and female climacteric states
CPT/HCPCS: 77067; 77080

== ENCOUNTER → 2022-12-11 | Outpatient (CLI) | payer OTHER ==
--- NOTE | 2022-12-11 11:16 | FL ---
EXAMINATION TYPE: FL sniff test without CXR DATE OF EXAM: 12/11/2022 Comparison: Radiograph 12/04/2022 Clinical History: 62-year-old female Q79.1 Elevated left diaphragm Total fluoroscopy time: 1 minute 5 seconds. Total images: 15. Total DAP: 5.0. TECHNIQUE: Real-time fluoroscopy was performed with normal breathing, deep inspiration and expiration , and sniffing maneuver. Findings: On the baseline, there is asymmetric elevation of the left hemidiaphragm. Normal directionality of mo vement and relatively symmetric excursion on normal, quite breathing. Somewhat blunted initiation on deep inspiration and expiration. Patient is unable to consistently performing the sniffing maneuver. Way an optimal sniffing maneuver is performed, there is a short span of paradoxical movement noted of the left hemidiaphragm. 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 The left hemidiaphragm bumps up (par adoxical movement) during sniffing maneuver. We note relatively normal movement during quiet respirat ions.
== END | disposition home or self-care (01) ==
LOC: RADUSWWP 09:19
PROVIDERS: ATTEND Internal Medicine Critical Care Medicine
DX: Q79.1 Other congenital malformations of diaphragm (principal)
CPT/HCPCS: 76000

== ENCOUNTER 2023-03-20 06:18 | Day surgery (SDC) | payer OTHER ==
[2023-03-20] MEDS ORDERED: LACTATED RINGERS 1,000 ML IV SCH (06:21)
[2023-03-20 06:47] VITALS: TEMP 96.8
--- NOTE | 2023-03-20 07:21 | P.PCN ---
Date of Procedure: 03/20/23 Procedure(s) Performed: Preoperative diagnosis: Pseudotumor cerebri Post operative diagnoses: Pseudotumor cerebra E Procedure= lumbar puncture Anesthesia= local infiltration with lidocaine 1% 2 mL Condition: stable Complication: none. Description of the procedure: procedure risk and benefits discussed with the patient , consent signed. Patient and the procedure area placed in lateral position ( right side down ), back prepped with chlorhexidine 3 times been local infiltration of the skin and subcutaneous tissue with lidocaine 1% 2 mL for skin and subcu interstitial frustrations at L4 5 levels then 22-gauge Quincke-type needle advanced slowly at L4- 5 interlaminar space there was positive cerebrospi nal fluid which was clear, no heme, no paresthesia ,total of 8 ML of clear cerebrospinal fluid collected in 4 different tubes 2 mL in each, then the needle removed and a Band-Aid applied and patient tolerated the procedure well without any complications. Opening pressure= 19 cm of water
[2023-03-20 07:27] VITALS: RESP 16
[2023-03-20 07:42] VITALS: BP 146/90; PULSE 60
[2023-03-20 08:23] LABS: Glucose,CSF 69 mg/dL (40-70); Total Protein,CSF 62 mg/dL (12-60)
== END 2023-03-20 07:53 | disposition home or self-care (01) ==
LOC: ORPAIN 06:18
PROVIDERS: ATTEND Specialist
DX: G93.2 Benign intracranial hypertension (principal)
CPT/HCPCS: 62270; 82945; 84157

== ENCOUNTER → 2023-09-09 | Outpatient (CLI) | payer OTHER ==
--- NOTE | 2023-09-10 19:45 | MM ---
Reason for Exam: Screening (asymptomatic). Last screening mammogram was performed 12 month(s) ago. Patient History: Menarche at age 13. First Full-Term at age 24. Postmenopausal. Risk Values: Danielle 5 year model risk: 1.4%. NCI Lifetime model risk: 6.2%. Prior Study Comparison: 07/21/2020 Bilateral Screening Mammogram, [facility]. 08/30/2021 Bilateral Screening Mammogram, [facility]. 09/06/2022 Bilateral MG screening mammo w CAD, [facility]. Tissue Density: There are scattered fibroglandular densities. Findings: Analyzed By CAD. Appears symmetrical and stable. Focal asymmetry is in the upper right breast, stable from comparison. No significant interval changes. No suspicious groups of microcalcifications, spiculated or lobular masses, architectural distortion or other secondary signs of malignancy are mammographically apparent. Overall Assessment: Benign, BI-RAD 2 Management: Screening Mammogram of both breasts in 1 year. A negative mammogram report should not preclude additional follow up of suspicious palpable abnormalities. Patient should continue monthly self breast exam. A clinical breast exam by your physician is recommended on an annual basis and results should be correlated with mammographic findings. Electronically signed and approved by: Taran Ignacio D.O. Radiologis
== END | disposition home or self-care (01) ==
LOC: RADMAMWWP 16:29
PROVIDERS: ATTEND Obstetrics & Gynecology
DX: Z12.31 Encounter for screening mammogram for malignant neoplasm of breast (principal); Z78.0 Asymptomatic menopausal state
CPT/HCPCS: 77067

== ENCOUNTER → 2024-01-07 | Outpatient (CLI) | payer OTHER ==
--- NOTE | 2024-01-13 16:48 | P.PCN ---
Date of Procedure: 01/07/24 Operative Findings: Home sleep study testing Date of service is 01/07/2024 Pertinent history this is a 63-year-old female patient with history of pulmonary sarcoidosis, currently asymptomatic, and history of lef left diaphragmatic weakness/paralysis. The patient also has obstructive sleep apnea. The patient was diagnosed having RUDY and an outside sleep center and the patient has undergone mandibular surgery, probably mandibular advancement surgery and currently not using any form of CPAP therapy. Despite her efforts to lose weight, the patient has gained weight. She has become symptomatic regarding her obstructive sleep apnea. Based on that, home sleep study was ordered Pertinent physical findings The patient's height is 5 feet and 1 inch, weight is 191 pounds, BMI 36.1 Technical description The [employer] ApneaLink system was used to complete this home sleep study. This is a type III home sleep study. The total recording duration was 7 hours and 12 minutes. The study started at 10:09 PM and ended at 5:22 AM. The patient had a total of 6054 minutes of flow monitoring and 7 hours and 2 minutes of oxygen saturation monitoring Results Respiratory analysis showed a total of 119 obstructive apneas and 234 obstructive hypopneas. The resulting apnea-hypopnea index was 51 consistent w ith severe obstructive sleep apnea Oxygenation analysis The baseline pulse ox while awake was 95%, average pulse ox during sleep was 91%, lowest pulse ox was 84% and the patient spent approximately 35 minutes of sleep time below pulse ox of 89% Cardiac summary Average heart rate was 63 with a minimum heart rate of 54 and a maximum heart rate of 86 Assessment Severe symptomatic RUDY with an AHI of 51. Mild nocturnal oxygen desaturation with a minimum pulse ox of 84% History of sarcoidosis, currently inactive and stable Left hemidiaphragmatic elevation/paralysis Chronic hypersomnia Ada of 10 Hypothyroidism Obesity with a BMI of 36.1 Plan Will discuss findings with the patient. Obviously with the severity of her obstructive sleep apnea and other comorbidities, the patient could benefit from CPAP therapy. I am going to make recommendations for this patient to come into the sleep center to undergo an in lab CPAP titration and this will be followed up by CPAP/BiPAP therapy at a later stage. Maintain good sleep hygiene measures. Maintain regular sleep schedule. Will continue to follow.
== END ==
LOC: 3 N SLEEP 10:57
PROVIDERS: ATTEND Internal Medicine Critical Care Medicine
DX: G47.33 Obstructive sleep apnea (adult) (pediatric) (principal); D86.9 Sarcoidosis, unspecified; G47.10 Hypersomnia, unspecified; E03.9 Hypothyroidism, unspecified; E66.9 Obesity, unspecified; Z88.3 Allergy status to other anti-infective agents; Z79.890 Hormone replacement therapy; Z68.36 Body mass index [BMI] 36.0-36.9, adult

== ENCOUNTER 2024-02-12 19:53 | Outpatient (CLI) | payer OTHER ==
--- NOTE | 2024-02-26 06:56 | P.PCN ---
Date of Procedure: 02/12/24 Operative Findings: CPAP titration report Date of services 02/12/2024 Pertinent history This patient has been diagnosed having severe obstructive sleep apnea with an AHI of 51. She has history of sarcoidosis, left hemidiaphragmatic elevation/paralysis along with chronic hypersomnia with an Wheeler score of 10. Body mass index is 36. Patient is coming in for CPAP titration Pertinent physical findings The height is 5 feet and 1 inch, weight is 191 pounds with a BMI of 36.1 Technical description The patient was studied using a standard complex polysomnography protocol that included recording of the 2 EKG, Central, occipital and frontal EEG, right and left outer canthus EOG, submental EMG, right and left anterior tibialis EMG, respiratory airflow by thermocouple and or pressure/flow transducer, respiratory efforts by abdominal and thoracic PVDF belts, oxygen saturation by cable oximetry. Position by observation synchronized the PSG. Stepwise CPAP titration was done to limit obstructive respiratory events.. Equipment used: [employer].. Sleep architecture The total recording duration was 450 minutes. The total sleep time was 321.5 minutes. The sleep efficiency was calculated to be at 77.5%. The latency to sleep onset was 46 minutes. The latency to REM sleep was 105.5 minutes. The sleep architecture was characterized by 7.3% stage I, 38.1% stage II, 19% stage III, 35.6% REM sleep. The total arousal index was 17. In the wake after sleep onset time was 45.5 minutes. Respiratory analysis the patient was started on CPAP therapy initially at a pressure of 5 cm of water and the pressure was gradually creased vancomycin 1 cm to reach a maximum CPAP pressure of 13 cm of water. This was successful titration. During the titration, the patient encountered REM sleep in excess and the patient was also started in various body positions including supine body position. At a pressure of 13 cm of water, the patient had adequate examination of the obstructive respiratory events without any significant nocturnal oxygen desaturations. In summary, this was a successful titration Sleep continuity summary The patient had a total of 91 arousals with an index of 17. Respiratory arousal index was 3.9 Periodic limb movement activity None Cardiac summary Average heart rate was 64 with a minimum heart rate of 61 and a maximum heart rate of 69 Assessment Severe symptomatic RUDY with an AHI of 51. The patient underwent a successful CPAP titration History of sarcoidosis Chronic left diaphragmatic elevation/paralysis Chronic hypersomnia with an Wheeler score of 10 Hypothyroidism Obesity with a BMI of 36.1 Plan Initiate CPAP therapy with a CPAP pressure of 13 cm of water with a C-Flex of 3. The patient is going to be provided an AirFit F30 I small size fullface mask. The patient will see him back in the office in 30 to 90 days to assess clinical response and compliancy.
== END 2024-02-13 06:25 | disposition home or self-care (01) ==
LOC: 3 N SLEEP 19:53
PROVIDERS: ATTEND Internal Medicine Critical Care Medicine
DX: G47.33 Obstructive sleep apnea (adult) (pediatric) (principal); E03.9 Hypothyroidism, unspecified; E66.9 Obesity, unspecified; Q79.1 Other congenital malformations of diaphragm; D86.0 Sarcoidosis of lung; G47.10 Hypersomnia, unspecified; G83.9 Paralytic syndrome, unspecified; Z68.36 Body mass index [BMI] 36.0-36.9, adult; Z88.8 Allergy status to other drugs, medicaments and biological substances; Z79.890 Hormone replacement therapy
CPT/HCPCS: 95811

== ENCOUNTER → 2024-09-10 | Outpatient (CLI) | payer OTHER ==
--- NOTE | 2024-09-12 00:34 | MM ---
Reason for Exam: Screening (asymptomatic). Last screening mammogram was performed 12 month(s) ago. Patient History: Menarche at age 13. First Full-Term at age 24. Postmenopausal. Risk Values: Danielle 5 year model risk: 1.4%. NCI Lifetime model risk: 6.0%. Prior Study Comparison: 08/30/2021 Bilateral Screening Mammogram, [facility]. 09/06/2022 Bilateral MG screening mammo w CAD, [facility]. 09/09/2023 Bilateral MG screening mammo w CAD, [facility]. Tissue Density: There are scattered areas of fibroglandular density. Findings: Analyzed By CAD. The pattern is symmetrical. No significant interval change is evident. There is chronic nodularity within the left breast No suspicious groups of microcalcifications, spiculated or lobular masses, architectural distortion or other secondary signs of malignancy are mammographically apparent. Overall Assessment: Benign, BI-RAD 2 Management: Screening Mammogram of both breasts in 1 year. A negative mammogram report should not preclude additional follow up of suspicious palpable abnormalities. Patient should continue monthly self breast exam. A clinical breast exam by your physician is recommended on an annual basis and results should be correlated with mammographic findings. Note on Danielle scores and lifetime risk: 1. A Danielle score greater than 3% is considered moderate risk. If this is the case, consider specialist referral to assess eligibility for a risk reducing agent. 2. If overall lifetime risk for the development of breast cancer is 20% or higher, the patient may qualify for future screening with alternating mammogram and breast MRI. [facility], , 09/12/2024 12:31 AM. Electronically signed and approved by: Taran Ignacio D.O. Radiologis
== END | disposition home or self-care (01) ==
LOC: RADMAMWWP 11:42
PROVIDERS: ATTEND Obstetrics & Gynecology
DX: Z12.31 Encounter for screening mammogram for malignant neoplasm of breast (principal); Z78.0 Asymptomatic menopausal state; R92.323 Mammographic fibroglandular density, bilateral breasts; N63.20 Unspecified lump in the left breast, unspecified quadrant
CPT/HCPCS: 77063; 77067